=== PATIENT | male | born 1985 | race African-American/Black ===

== ENCOUNTER 2019-01-25 11:46 | Emergency (ER) | payer OTHER ==
--- NOTE | 2019-01-25 12:34 | RAD ---
RIGHT KNEE FOUR VIEWS: HISTORY: Pain. COMPARISON: None. FINDINGS: No joint effusion. The joint spaces are preserved. No fracture or malalignment. IMPRESSION: Unremarkable right knee four views. POS: OFF
--- NOTE | 2019-01-25 12:35 | RAD ---
FOUR VIEWS LEFT KNEE: 01/25/19 HISTORY: Right knee pain. FINDINGS: Joint space is preserved. No fractures or malalignment. No joint effusion. IMPRESSION: Unremarkable left knee four views. POS: OFF
== END 2019-01-25 13:37 | disposition home or self-care (01) ==
LOC: ERS 11:46
DX: M25.461 Effusion, right knee (principal); M25.562 Pain in left knee; F17.210 Nicotine dependence, cigarettes, uncomplicated; M41.9 Scoliosis, unspecified

== ENCOUNTER 2024-01-03 09:17 | Emergency (ER) | payer OTHER, SELFPAY | END 2024-01-03 10:07 | disposition home or self-care (01) | LOC: ERS 09:17 | DX: Z00.00 Encounter for general adult medical examination without abnormal findings (principal); F17.210 Nicotine dependence, cigarettes, uncomplicated | CPT/HCPCS: 99282 ==